=== PATIENT | female | born 1970 | race Caucasian/White ===

== ENCOUNTER 2017-04-13 10:05 | Emergency (ER) | payer MEDICAID ==
[~2017-04-13] VITALS: Ht 157.5 cm; Wt 59.0 kg
[2017-04-13 10:13] VITALS: BP 148/79
[2017-04-13] MEDS ORDERED: HYDROCODONE-AP1 EAC6 PO (10:36)
[2017-04-13] MEDS ORDERED: MEDROLDOSEPACK PO (10:36)
[2017-04-13] MEDS ORDERED: MOBIC7.5 MG PO (10:36)
== END 2017-04-13 10:46 | disposition home or self-care (01) ==
LOC: M.ERS 10:05
DX: M54.31 Sciatica, right side (principal); Z85.3 Personal history of malignant neoplasm of breast; Z98.890 Other specified postprocedural states; Z88.2 Allergy status to sulfonamides